=== PATIENT | female | born 1995 | race Caucasian/White ===

== ENCOUNTER 2024-09-08 15:38 | Emergency (ER) | payer OTHER, SELFPAY ==
[2024-09-08 15:48] VITALS: BP 111/60; PULSE 84; RESP 16; TEMP 36.8; O2SAT 100
--- NOTE | 2024-09-08 15:53 | ED.GENADULT ---
HPI - General Adult General Chief complaint: Skin/Abscess/Foreign Body Stated complaint: swollen lymph node Time Seen by Provider: 09/08/24 15:53 Source: patient Mode of arrival: ambulatory Limitations: no limitations History of Present Illness HPI narrative: 29y yo F presents with swollen painful lymph node to R side of neck. Noticed yesterday. States came on suddenly . Called PCP office and told her she should be seen today at an , no appts there. Afebrile. States acne worse that usual. Recently found out shes . Staes she's approx. 4wks. All systems reviewed and negative except as noted above. Related Data Allergies Allergy/AdvReac Type Severity Reaction Status Date / Time amoxicillin Allergy Severe Anaphylaxis Verified 09/08/24 15:53 Penicillins Allergy Severe Anaphylaxis Verified 09/08/24 15:53 Review of Systems Review of Systems: CONSTITUTIONAL: Denies fever, chills, or sweats. EYES: Denies visual changes, redness, or discharge. ENT: Denies rhinorrhea, congestion, sore throat, or otalgia. CARDIOVASCULAR: Denies chest pain, palpitations, or edema. RESPIRATORY: Denies cough or dyspnea. GASTROINTESTINAL: Denies abdominal pain, nausea, vomiting, or diarrhea. GENITOURINARY: Denies dysuria or hematuria. SKIN: Denies rash or itching. Reports lymph node to right side of neck as swollen and painful. MUSCULOSKELETAL: Denies back pain, joint pain, or myalgia. NEUROLOGIC: Denies headache, numbness, or weakness. PSYCHIATRIC: Denies anxiety or depression. All other systems reviewed are negative, except as documented in HPI. PMFSH Comments At time of signature, agree with nursing past medical, surgical, social and family history. There is no relevant family history pertinent to the presenting complaint. Exam Narrative: GENERAL: This is a well-nourished, well-developed patient, in no apparent distress. HEAD: normocephalic, atraumatic. EYES: PERRL. Sclera clear/white. Vision is grossly intact. EARS: External ears normal, NOSE: External nose normal NECK: Neck supple, tender Right-sided cervical lymphadenopathy. No masses or thyromegaly. CARDIOVASCULAR: Regular rate and rhythm without murmurs, gallops, or rubs. RESPIRATORY: Clear to auscultation. Breath sounds equal bilaterally. No wheezes, rales, or rhonchi. SKIN: warm, Dry, intact with no suspicious lesions or rash, good texture and turgor. Multiple scabs to face from acne. Scabbed to right cheek has surrounding erythema and swelling with mild warmth. NEURO: awake, alert, and oriented to person, place and time. There were no obvious focal neurologic abnormalities. EXTREMITIES: No joint tenderness, effusion, or edema noted. Course Course Level of Care: Express Care Visit Vital Signs Vital signs: reviewed Medical Decision Making MDM Narrative Medical decision making narrative: patient is well-appearing, nontoxic. Afebrile. Will treat with antibiotic for right-sided facial cellulitis. Recommend follow-up with primary care physician if lymph node swelling not improving. Please be advised this is a medical document. It is intended for [id number] communication. It is written in medical language and may contain unfamiliar abbreviations or verbiage. Medical documents are intended to carry relevant information, facts as evident, and the clinical opinion of the practitioner at the time of the encounter. This report may have been done utilizing a voice recognition system. Attempts have been made to correct errors. However, there may be uncorrected grammatical, spelling, and recognition errors present. The file time of this note does not necessarily represent the time of service. Discharge Plan Discharge Clinical Impression: Cellulitis of face, Lymphadenopathy Patient Disposition: Home, Self-Care Condition: Stable Instructions: Antibiotic Form, Cellulitis (ED) Additional Instructions: Take antibiotic as prescribed. Avoid picking at acne on face to prevent infection. Follow-up with primary care physician if lymph node swelling not improving. Patient Language: Monegasque Prescriptions: New clindamycin HCl 300 mg capsule 300 mg PO Q8H 7 Days Qty: 21 0RF Follow-up/Referrals: Catherine,Christina Lagunas MD [Primary Care Provider] - Time of Disposition: 16:04
--- OUTSIDE RECORDS SUMMARY | 2024-09-08 16:51 | XMS_ITS | Encounter Summary ---
Author Organization [facility] Address [facility] [place] [address] Care Team Providers Care Line Welder Name Role Phone Christina Alexander DO Primary Care Provider [phone] Encounter Details Date Type Department Care Team (Late st Contact Info) Description 09/08/2024 Boardvotet Message Enc [facility] Family Medicine - [place] [address], [address] [place] [id number] Christina Alexander DO [address] [place] [address] swollen lymph node in neck Social History Tobacco Use Types Packs/Day Years Used Date Smoking Tobacco: Every Day Cigarettes 0.5 6.2 Started: 06/16/2018 Passive Smoke Exposure: Current Smokeless Tobacco: Never Comments:Patient is ready to quit. Alcohol Use Standard Drinks/Week Comments No 0 (1 standard drink = 0.6 oz pur e alcohol) AUDIT-C Answer Date Recorded Frequency of Alcohol Consumption Never 05/12/2018 Average Number of Drinks Not on file 018 Frequency of Binge Drinking Not on file 04/17 PHQ-2 Answer Date Recorded Patient Health Questionnaire-2 Score 1 12/22/2023 Comments No Sex and Gender Information Value Date Recorded Sex Assigned at Not on file Legal Sex Female 6:20 PM CDT Gender Identity Not on file Sexual Orientation Not on file documented as of this encounter Plan of Treatment Upcoming Encounters Date Type Department Care Team (Late st Contact Info) Description 09/09/2024 2:20 PM CDT Office Visit [facility] Family Medicine - [place] [address], [address] [place] [address] Christina Alexander DO [address] [place] [address] documented as of this encounter Visit Diagnoses Not on filedocumented in this encounter Additional Health Concerns Assessment Noted Time PHQ-9 Depression Total Score: 13 024 9:46 AM CDT documented as of this encounter Care Teams Line Welder Relationship Specialty Start Date End Date Christina Alexander DO [address] [place] [address] PCP - General 09/13/15 documented as of this encounter
--- OUTSIDE RECORDS SUMMARY | 2024-09-08 16:51 | XMS_ITS | Referral Summary ---
Author Organization [facility] Address [address] [place] [address] Care Team Providers Care Police Chief Name Role Phone Christina Alexander MD Primary Care Provider [phone] Encounters Date Type Department Care Team Description 08/20/2024 8:08 PM MACHINE III COREMAKER - 08/20/2024 8:59 PM [facility] Emergency [facility] Emergency Department [address] [place] [address] Chest pain, unspecified type (Primary Dx) Discharge Disposition: Discharge to home or self care from Last 3 Months Allergies Active Allergy Reactions Criticality Noted Date Comments Amoxicillin Anaphylaxis High 01/14/2019 anaphylaxis Penicillin V Potassium Anaphylaxis High 01/14/2019 anaphylaxis Penicillins Anaphylaxis,Hives High 05/08/2018 Itching Hives Medications levothyroxine (SYNTHROID) 25 mcg tablet Take 1 tablet (25 mcg total) by mouth garment inspector before breakfast 2 Active busPIRone (BUSPAR) 5 mg tablet Take 1 tablet (5 mg total) by mouth 3 (three) times a day Active hydrOXYzine (ATARAX) 10 mg tablet Take 1 tablet (10 mg total) by mouth 3 (three) times a day as needed Active Active Problems Problem Noted Date Diagnosed Date Sore throat 08/14/2022 Assessment & Plan (08/15/2022 8:19 AM MACHINE III COREMAKER): Rapid strep negative Throat culture and PCR pending Provided prescription for azithromycin due to strep exposure and currently symptomatic, discussed she can wait until throat culture results to start antibiotic or start now Warm salt water gargles Tylenol (acetaminophen) or Advil/Motin (ibuprofen) as needed per package directions for aches/pains. If you are not improving or worsening in the next 3-5 days you must RETURN to the clinic, go to your PCP, or Urgent Care/ER to be SEEN and reevaluated. No further prescriptions or refills will be given by phone without another evaluation. Generalized anxiety disorder 09/25/2021 Assessment & Plan (09/25/2021 7:23 PM CDT): pcp managing. Encouraged continued f/u with their office. She additionally is evaluated by a counselor, encouraged her to continue with their care. Irregular menses 09/25/2021 Assessment & Plan (09/25/2021 7:23 PM CDT): Discussed pain was likely ovulatory/cyst related. Will evaluate further with US. Tni's thyroiditis 09/25/2021 Assessment & Plan (09/25/2021 7:22 PM CDT): pcp managing Surveillance of implantable subdermal contracept marilu 01/14/2019 Anxiety 01/15/2017 Depression 04/05/2016 Acne 08/16/2013 Dysmenorrhea 08/12/2012 Social History Tobacco Use Types Packs/Day Years Used Date Smoking Tobacco: Every Day Cigarettes Smokeless Tobacco: Never Alcohol Use Standard Drinks/Week Comments Yes 0 (1 standard drink = 0.6 oz pur e alcohol) Social Personal Safety Answer Date Recorded Have you ever been in or are you currently in a harmful physical or emotional relationship or is someone making you feel afraid or unsafe? Denies 08/20/2024 Comments No Sex and Gender Information Value Date Recorded Sex Assigned at Not on file Legal Sex Female 11:17 PM MACHINE III COREMAKER Gender Identity Not on file Sexual Orientation Not on file Last Filed Vital Signs Vital Sign Reading Time Taken Comments Blood Pressure 104/73 08/20/2024 8:30 PM MACHINE III COREMAKER Pulse 77 08/20/2024 8:50 PM MACHINE III COREMAKER Temperature 36.8 C (98.2 F) 08/20/2024 8:50 PM MACHINE III COREMAKER Respiratory Rate 16 08/20/2024 8:50 PM MACHINE III COREMAKER Oxygen Saturation 100% 08/20/2024 8:50 PM MACHINE III COREMAKER Inhaled Oxygen Concentration - - Weight 65.3 kg (143 lb 15.4 oz) 08/20/2024 6:29 PM MACHINE III COREMAKER Height 170.2 cm (5' 7 ) 08/20/2024 6:29 PM MACHINE III COREMAKER Body Mass Index 22.55 08/20/2024 6:29 PM MACHINE III COREMAKER Plan of Treatment Not on file Procedures Procedure Name Priority Date/Time Associated Diagnosis Comments EGFR STAT 08/20/2024 7:22 PM MACHINE III COREMAKER DIFFERENTIAL AUTO STAT 08/20/2024 7:2 2 PM MACHINE III COREMAKER TROPONIN T HIGH-SENSITIVITY SERIES (BASELINE, 2HR, 4HR, 6HR) STAT 08/20/2024 7:22 PM MACHINE III COREMAKER COMPREHENSIVE METABOLIC PANEL STAT 08/20/2024 7:22 PM MACHINE III COREMAKER CBC WITH AUTO DIFFERENTIAL STAT 08/20/2024 7:22 PM MACHINE III COREMAKER XR CHEST 1 VIEW ED 08/20/2024 6:57 PM MACHINE III COREMAKER ECG 12-LEAD STAT 08/20/2024 6:37 PM MACHINE III COREMAKER THINPREP TIS PAP REFLEX HPV MRNA E6/E7, CHLAMYDIA/N.GONORRHOEA E Routine 07/25/2017 3:17 PM MACHINE III COREMAKER HEPATITIS C ANTIBODY Routine 07/25/2017 2:35 PM MACHINE III COREMAKER from Last 3 Months or Most Recently Relevant to Health Maintenance Results * Troponin T high-sensitivity series (baseline, 2hr, 4hr, 6hr) (08/20/2024 7:22 PM MACHINE III COREMAKER) Trop T hs <6 <=14 ng/L Comment: Interpretive Data For further hscTnT resources including the diagnostic algorithm and an aid in interpretation, copy and paste this link: https://nrl.testcatalog.org/show/hsTrop Current Interpretive Data last revised 2020. Testing performed by: [address] [address] Blood 08/20/2024 7:22 PM MACHINE III COREMAKER 08/20/2024 7:35 PM MACHINE III COREMAKER Mario Alberto Emery MD LAB BLOOD ORDERABLES F inal Result Performing Organization Address [facility] Co de Phone Number RICHELLE [address] [place] [address] * eGFR (08/20/2024 7:22 PM MACHINE III COREMAKER) eGFR >90 >=60 mL/min/1. 73 m2 Comment: Interpretive Data Reference Interval Normal >/= 90 mL/min/1.73m2 Mildly decreased* 60 - 89 mL/min/1.73m2 Mildly to moderately decreased 45 - 59 mL/min/1.73m2 Moderately to severely decreased 30 - 44 mL/min/1.73m2 Severely decreased 15 - 29 mL/min/1.73m2 Kidney Failure < 15 mL/min/1.73m2 *Relative to young adult level Estimated glomerular filtration rate is determined by the 2020 CKD-EPI equation recommended by the National Kidney Foundation (A Unifying Approach to GFR Estimation: Recommendations of the NKF-ASK Task Force on Reassessing the Inclusion of Race in Diagnosing Kidney Disease, JASN 202). The CKD-EPI equation should not be used for patients with unstable renal function and has not been validated in children and those over 70. Current interpretive data was last reviewed 2021. Testing performed by: [address] [address] Blood 08/20/2024 7:22 PM MACHINE III COREMAKER 08/20/2024 7:35 PM MACHINE III COREMAKER us Mario Alberto Emery MD LAB BLOOD ORDERABLES F inal Result Performing Organization Address City/[facility]/ZIP Co de Phone Number RICHELLE [address] [place] [address] * Differential, auto (08/20/2024 7:22 PM MACHINE III COREMAKER) Neutrophil abs 4.7 1.5 - 6.5 K/cumm Comment:Testing performed by : [address] [address] Imm gran abs 0.0 0.0 - 0.1 K/cumm [facility] Comment:Testing performed by : [address] [address] Lymphocyte abs 2.4 0.8 - 3.3 K/cumm [facility] Comment:Testing performed by : [address] [address] Monocyte abs 0.5 0.2 - 0.8 K/cumm [facility] Comment:Testing performed by : [address] [address] Eosinophil abs 0.1 0.0 - 0.5 K/cumm [facility] Comment:Testing performed by : [address] [address] Basophil abs 0.1 0.0 - 0.1 K/cumm [facility] Comment:Testing performed by : [address] [address] Neutrophil pct 60.3 % [facility] Comment: Interpretive Data Percent cell count reference ranges are not reported, since discordance with absolute values may lead to misinterpretation of CBC data. Current Interpretive Data was last revised on 2017. Testing performed by: [address] [address] Imm gran pct 0.3 % [facility] Comment: Interpretive Data Percent cell count reference ranges are not reported, since discordance with absolute values may lead to misinterpretation of CBC data. Current Interpretive Data was last revised on 2017. Testing performed by: [address] [address] Lymphocyte pct 31.1 % [facility] Comment: Interpretive Data Percent cell count reference ranges are not reported, since discordance with absolute values may lead to misinterpretation of CBC data. Current Interpretive Data was last revised on 2017. Testing performed by: [address] [address] Monocyte pct 6.7 % RICHELLE Comment: Interpretive Data Percent cell count reference ranges are not reported, since discordance with absolute values may lead to misinterpretation of CBC data. Current Interpretive Data was last revised on 2017. Testing performed by: [address] [address] Eosinophil pct 1.0 % RICHELLE Comment: Interpretive Data Percent cell count reference ranges are not reported, since discordance with absolute values may lead to misinterpretation of CBC data. Current Interpretive Data was last revised on 2017. Testing performed by: [address] [address] Basophil pct 0.6 % RICHELLE Comment: Interpretive Data Percent cell count reference ranges are not reported, since discordance with absolute values may lead to misinterpretation of CBC data. Current Interpretive Data was last revised on 2017. Testing performed by: [address] [address] Blood 08/20/2024 7:22 PM MACHINE III COREMAKER 08/20/2024 7:35 PM MACHINE III COREMAKER us Mario Alberto Emery MD LAB BLOOD ORDERABLES F inal Result [facility] [place] [address] * CBC with auto differential (08/20/2024 7:22 PM MACHINE III COREMAKER) Pathologist [facility] WBC 7.7 3.8 - 9.9 K/cumm Comment:Testing performed by : [address] [address] Hgb 12.7 11.9 - 15.5 g/dL RICHELLE PANDA Comment:Testing performed by : [address] [address] Hct 37.6 35.6 - 45.5 % RICHELLE PANDA Comment:Testing performed by : [address] [address] Plt 276 150 - 400 K/cumm RICHELLE PANDA Comment:Testing performed by : [address] [address] MPV 10.1 9.1 - 12.3 fL RICHELLE PANDA Comment:Testing performed by : [address] [address] RBC 4.16 3.90 - 5.20 M/cumm RICHELLE PANDA Comment:Testing performed by : [address] [address] MCV 90.4 81.3 - 96.4 fL RICHELLE PANDA Comment:Testing performed by : [address] [address] MCH 30.5 27.1 - 33.3 pg RICHELLE PANDA Comment:Testing performed by : [address] [address] MCHC 33.8 32.3 - 35.7 g/dL RICHELLE PANDA Comment:Testing performed by : [address] [address] RDW CV 12.8 11.1 - 14.9 % RICHELLE Comment:Testing performed by : [address] [address] RDW SD 41.8 35.7 - 48.1 fL RICHELLE PANDA Comment:Testing performed by : [address] [address] NRBC abs 0.00 0.00 - 0.01 K/cumm RICHELLE Comment:Testing performed by : [address] [address] Blood Venous blood specimen / Unknown 08/20/2024 7:22 PM MACHINE III COREMAKER 08/20/2024 7:35 PM MACHINE III COREMAKER us Mario Alberto Emery MD LAB BLOOD ORDERABLES F inal Result RICHELLE PANDA [facility] Department [place] [address] * Comprehensive metabolic panel (08/20/2024 7:22 PM MACHINE III COREMAKER) Sodium 139 135 - 145 mmol/L Comment:Testing performed by : [address], [place]., [address] Potassium, pl 4.1 3.3 - 4.9 mmol/L RICHELLE Comment:Testing performed by : [address], [place]., [address] Chloride 105 97 - 110 mmol/L RICHELLE Comment:Testing performed by : [address], [place]., [address] CO2 25 22 - 32 mmol/L RICHELLE Comment:Testing performed by : [address], [place]., [address] Anion gap 9 2 - 15 mmol/L RICHELLE Comment:Testing performed by : [address], [place]., [address] BUN 14 6 - 25 mg/dL RICHELLE Comment:Testing performed by : [address], [place]., [address] Creatinine 0.63 0.60 - 1.10 mg/dL RICHELLE Comment:Testing performed by : [address], [place]., [address] Glucose 91 70 - 199 mg/dL [facility] Comment: Interpretive Data Fasting glucose >/= 126 mg/dl is diagnostic for diabetes. Fasting is defined as no caloric intake for at least 8 hours. Fasting glucose between 100 mg/dl to 125 mg/dl is diagnostic of prediabetes. In a patient with classic symptoms of hyperglycemia or hyperglycemic crisis, a random glucose >/= 200 mg/dl is diagnostic for diabetes. In the absence of unequivocal hyperglycemia, results should be confirmed by repeat testing. The classification and Diagnosis of Diabetes Diabetes Care 202; 46: S19-S40. Current interpretive data was last revised 2022. Testing performed by: [address] [address] Calcium 9.4 8.5 - 10.3 mg/dL RICHELLE Comment:Testing performed by : [address], [place]., [address] Bilirubin, total 0.7 0.1 - 1.2 mg/dL RICHELLE Comment:Testing performed by : [address] [address] Protein, pl 7.3 6.5 - 8.5 g/dL RICHELLE PANDA Comment:Testing performed by : [address] [address] Albumin 4.5 3.5 - 5.0 g/dL RICHELLE PANDA Comment:Testing performed by : [address] [address] Alk phos 46 40 - 130 Units/L RICHELLE Comment:Testing performed by : [address] [address] ALT 12 7 - 45 Units/L RICHELLE Comment:Testing performed by : [address] [address] AST 19 10 - 45 Units/L RICHELLE Comment:Testing performed by : [address] [address] Blood 08/20/2024 7:22 PM MACHINE III COREMAKER 08/20/2024 7:35 PM MACHINE III COREMAKER us Mario Alberto Emery MD LAB BLOOD ORDERABLES F inal Result RICHELLE [address] [facility] Department [place] [address] * XR Chest 1 Vw Portable (if patient condition/safety warrant portable) (08/20/2024 6:57 PM MACHINE III COREMAKER) Anatomical Region Laterality Modality Body, Chest N/A Computed Radiogr aphy 08/20/2024 7:08 PM MACHINE III COREMAKER Narrative 08/20/2024 7:13 PM MACHINE III COREMAKER EXAM DESCRIPTION: XR CHEST 1 VIEW REASON FOR STUDY: chest pain Panic attack last night that continued into today and has gotten worse. Chest pains with it. TECHNIQUE: Single frontal radiographic view(s) of the chest. COMPARISON: None available. FINDINGS: No focal pneumonic consolidation, pleural effusion or pneumothorax. The heart is nonenlarged. The osseous structures without gross acute abnormality. IMPRESSION: No focal pneumonic consolidation. THIS IS AN ELECTRONICALLY VERIFIED FINAL REPORT 08/20/2024 7:13 PM - Electronically signed by Paul Peacock D.O. AP: AP Report ID: [id number] Reading Location: [id number] Procedure Note Paul Peacock DO - 08/20/2024 EXAM DESCRIPTION: XR CHEST 1 VIEW REASON FOR STUDY: chest pain Panic attack last night that continued into today and has gotten worse.Chest pains with it. TECHNIQUE: Single frontal radiographic view(s) of the chest. COMPARISON: None available. FINDINGS: No focal pneumonic consolidation, pleural effusion orpneumothorax. The heart is nonenlarged. The osseous structures without gross acute abnormality. IMPRESSION: No focal pneumonic consolidation. THIS IS AN ELECTRONICALLY VERIFIED FINAL REPORT 08/20/2024 7:13 PM - Electronically signed by Paul Peacock D.O. AP: AP Report ID: [id number] Reading Location: [id number] us Mario Alberto Emery MD IMG XR PROCEDURES Penny l Result * ECG 12 lead (08/20/2024 6:37 PM MACHINE III COREMAKER) Ventricular Rate EKG/Min 71 BPM [facility] Atrial Rate 71 BPM [facility] [place]-Interval (MSEC) 172 ms [facility] QRS-Interval (MSEC) 86 ms [facility] QT-Interval (MSEC) 408 ms [facility] QTc 443 ms [facility] P Adel 46 degrees [facility] R Adel 39 degrees [facility] T Adel 33 degrees [facility] Diagnosis Normal sinus rhythm Normal ECG When compared with ECG of 25-JUL-2005 21:46, No significant change was found Confirmed by RICKY DANIELS M.D. ([id number]) on 08/21/2024 7:56:47 AM [facility] 08/20/2024 6:37 PM MACHINE III COREMAKER 08/21/2024 7:56 AM MACHINE III COREMAKER us Margarita SWEET ECG ORDERABLES Final Result [facility] * THINPREP TIS PAP REFLEX HPV mRNA E6/E7, CHLAMYDIA/N.GONORRHOEAE (07/25/2017 3:17 PM MACHINE III COREMAKER) CLINICAL INFORMATION [facility] HISTORICAL RESULTS Comment: LMP: 04/29/17 [facility] HISTORICAL RESULTS PREV. PAP: [facility] HISTORICAL RESULTS Comment:NEVER PREV. BX: [facility] HISTORICAL RESULTS Comment:Information not prov ided SOURCE: [facility] HISTORICAL RESULTS Comment:Cervix, Endocervix STATEMENT OF ADEQUACY: [facility] EC HISTORICAL RESULTS Comment:Satisfactory for frank luation. Endocervical/transformation zone component present. INTERPRETATION/RES ULT: [facility] HISTORICAL RESULTS Comment:Negative for intraep ithelial lesion or malignancy. INFECTION: [facility] HISTORICAL RESULTS Comment:Fungal organisms mor phologically consistent with Sailaja spp. COMMENT: [facility] HISTORICAL RESULTS Comment:This Pap test has be en evaluated with computer assisted technology. CORPORATE TRAINER: [facility] HISTORICAL RESULTS Comment:BAB, CT(ASCP) CT scr eening location: [place] [address] [place] [address] C. trachomatis RNA NOT DETECTED NOT DETECTED [facility] HISTORICAL RESULTS N. gonorrhoeae RNA NOT DETECTED NOT DETECTED [facility] HISTORICAL RESULTS COMMENT [facility] HISTORICAL RESULTS Comment: This test was performed using the APTIMA COMBO2 Assay (Gen-Walk-in [employer] The analytical performance characteristics of this assay, when used to test SurePath specimens have been determined by [facility]. 07/25/2017 3:17 PM MACHINE III COREMAKER 07/31/2017 3:05 PM MACHINE III COREMAKER Narrative [facility] HISTORICAL RESULTS - 07/31/2017 2:39 PM MACHINE III COREMAKER 0 PERFORMING LAB: [facility] [address] [facility] [id number] Franny Montero MD Dinah Cowan MD LAB PATHOLOGY ORDERABL ES Final Result Performing Organization Address City/[facility]/ZIP Co de Phone Number [facility] HISTORICAL RESULTS * Hepatitis C antibody (07/25/2017 2:35 PM MACHINE III COREMAKER) Hep C Ab NONREACT NONREACTIVE 07/25/2017 8:02 PM MACHINE [address] [facility] HISTORICAL RESULTS Comment: [employer] CentaurXP using MARY LOU (chemiluminescent immunoassay) technology. NONREACTIVE: Antibodies to Hepatitis C not detected. This does not exclude early acute Hepatitis C infection, possibility of exposure to Hepatitis C, antibodies below detection limit, or to lack of antibody reactivity to the antigen used in this assay. EQUIVOCAL: Antibodies to Hepatitis C may or may not be present. Sample to be confirmed by real-time PCR method. REACTIVE: Antibodies to Hepatitis C detected. 07/25/2017 2:35 PM MACHINE III COREMAKER 07/25/2017 3:51 PM MACHINE III COREMAKER Dinah Cowan MD LAB MICROBIOLOGY - GEN ERAL ORDERABLES Final Result [facility] HISTORICAL RESULTS from Last 3 Months or Most Recently Relevant to Health Maintenance Insurance [employer] OPEN ACCESS [employer] OPEN ACCESS Care Teams Police Chief Relationship Specialty Start Date End Date Christina Alexander MD PCP - General Family Medicine 01/14/19
--- OUTSIDE RECORDS SUMMARY | 2024-09-08 16:51 | XMS_ITS | Clinical Summary ---
Author Organization [facility] [address] at the Medical Office Building Address [address] [place] [address] Care Team Providers Care Direct Marketing Intern Name Role Phone Christina Alexander MD Primary Care Provider [phone] Allergies Active Allergy Reactions Criticality Noted Date Comments Amoxicillin Anaphylaxis High 01/14/2019 anaphylaxis Penicillin V Potassium Anaphylaxis High 01/14/2019 anaphylaxis Penicillins Anaphylaxis,Hives High 05/08/2018 Itching Hives Medications levothyroxine (SYNTHROID) 25 mcg tablet Take 1 tablet (25 mcg total) by mouth 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 Will evaluate further with US. 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 Assessment & Plan (09/25/2021 7:22 PM CDT): pcp managing Surveillance of implantable subdermal contracept marilu 01/14/2019 Anxiety 01/15/2017 Depression 04/05/2016 Acne 08/16/2013 Dysmenorrhea 08/12/2012 Encounters Date Type Department Care Team Description 08/20/2024 8:08 PM FOAM RUBBER CURER - 08/20/2024 8:59 PM RUST Emergency [facility] Emergency Department [address] [place] [address] [id number] Chest pain, unspecified type (Primary Dx) Discharge Disposition: Discharge to home or self care from Last 3 Months Surgical History Surgery Date Site/Laterality Comments HERNIA REPAIR Medical History Medical History Date Comments Anxiety Family History Medical History Relation Name Comments Breast cancer Neg Hx Colon cancer Neg Hx Osteoarthritis Neg Hx Ovarian cancer Neg Hx Uterine cancer Neg Hx Social History Tobacco Use Types Packs/Day Years [...] on file Legal Sex Female 11:17 PM FOAM RUBBER CURER Gender Identity Not on file Sexual Orientation Not on file Obstetrics History Para Term AB IAB SAB Ectopic Multiple Livin g Live Births 1 1 1 1 1 Date Outcome GA Total Labor Labor/2nd/3rd Weight Sex Type Anes PTL Cecille A1 A5 Name Clin 2017 Term 38w 0d M Vag-S pont N Living Last Filed Vital Signs Vital Sign Reading Time Taken Comments Blood Pressure 104/73 08/20/2024 8:30 PM FOAM RUBBER CURER Pulse 77 08/20/2024 8:50 PM FOAM RUBBER CURER Temperature 36.8 C (98.2 F) 08/20/2024 8:50 PM FOAM RUBBER CURER Respiratory Rate 16 08/20/2024 8:50 PM FOAM RUBBER CURER Oxygen Saturation 100% 08/20/2024 8:50 PM FOAM RUBBER CURER Inhaled Oxygen Concentration - - Weight 65.3 kg (143 lb 15.4 oz) 08/20/2024 6:29 PM FOAM RUBBER CURER Height 170.2 cm (5' 7 ) 08/20/2024 6:29 PM FOAM RUBBER CURER Body Mass Index 22.55 08/20/2024 6:29 PM FOAM RUBBER CURER Plan of Treatment Health Maintenance Due Date Last Done Comments Depression Screening 1995 Regular Well Visit/Exam 18-64 2013 Pneumococcal vaccine <65 (1 of 2 - PCV) 2014 Cervical Cancer Screening 07/25/2018 07/25/2017 Influenza Vaccine (#1) 2024 8, 03/14/2014, 03/25/2013, Additional history exists DTaP/Tdap/Td Vaccine (8 - Td or Tdap) 10/07/2028 10/07/2018, 08/01/2009, 02/05/2001, Additional history exists Varicella Vaccines Completed 02/05/2001, 07/23/1999 HPV Vaccines Completed 04/09/2007, 05/0 09/2006, 08/05/2006 Hepatitis B Screening Completed 04/01/2013 , 02/10/1996, 1995, Additional history exists Hepatitis C Screening Completed 07/25/2017 Procedures Procedure Name Priority Date/Time Associated Diagnosis Comments EGFR STAT 08/20/2024 7:22 PM FOAM RUBBER CURER DIFFERENTIAL AUTO STAT 08/20/2024 7:2 2 PM FOAM RUBBER CURER TROPONIN T HIGH-SENSITIVITY SERIES (BASELINE, 2HR, 4HR, 6HR) STAT 08/20/2024 7:22 PM FOAM RUBBER CURER COMPREHENSIVE METABOLIC PANEL STAT 08/20/2024 7:22 PM FOAM RUBBER CURER CBC WITH AUTO DIFFERENTIAL STAT 08/20/2024 7:22 PM FOAM RUBBER CURER XR CHEST 1 VIEW ED 08/20/2024 6:57 PM FOAM RUBBER CURER ECG 12-LEAD STAT 08/20/2024 6:37 PM FOAM RUBBER CURER THINPREP TIS PAP REFLEX HPV MRNA E6/E7, CHLAMYDIA/N.GONORRHOEA E Routine 07/25/2017 3:17 PM FOAM RUBBER CURER HEPATITIS C ANTIBODY Routine 07/25/2017 2:35 PM FOAM RUBBER CURER from Last 3 Months or Most Recently Relevant to Health Maintenance Results * Troponin T high-sensitivity series (baseline, 2hr, 4hr, 6hr) (08/20/2024 7:22 PM FOAM RUBBER CURER) Pathologist [facility] Trop T hs <6 <=14 ng/L Comment: Interpretive Data For further hscTnT resources including the diagnostic algorithm and an aid in interpretation, copy and paste this link: https://nrl.testcatalog.org/show/hsTrop Current Interpretive Data last revised 2020. Testing performed by: [facility], [address] [place] [address]., [address] Blood 08/20/2024 7:22 PM FOAM RUBBER CURER 08/20/2024 7:35 PM FOAM RUBBER CURER us Mario Alberto Emery MD LAB BLOOD ORDERABLES F inal Result RICHELLE [address] [facility] Department [place] [address] * eGFR (08/20/2024 7:22 PM FOAM RUBBER CURER) Pathologist [facility] eGFR >90 >=60 mL/min/1. 73 m2 Comment: [...] of Race in Diagnosing Kidney Disease, JASN 2020). The CKD-EPI equation should not be used for patients with unstable renal function and has not been validated in children and those over 70. Current interpretive data was last reviewed 2021. Testing performed by: [address] [address] Blood 08/20/2024 7:22 PM FOAM RUBBER CURER 08/20/2024 7:35 PM FOAM RUBBER CURER us Mario Alberto Emery MD LAB BLOOD ORDERABLES F inal Result R[facility]HELLE [address] [facility] Department [place] [address] * Differential, auto (08/20/2024 7:22 PM FOAM RUBBER CURER) Neutrophil abs 4.7 1.5 - 6.5 K/cumm Comment:Testing performed by : [address] [address] Imm gran abs 0.0 0.0 - 0.1 K/cumm RICHELLE Comment:Testing performed by : [address] [address] Lymphocyte abs 2.4 0.8 - 3.3 K/cumm RICHELLE Comment:Testing performed by : [address] [address] Monocyte abs 0.5 0.2 - 0.8 K/cumm RICHELLE Comment:Testing performed by : [address] [place]., [address] Eosinophil abs 0.1 0.0 - 0.5 K/cumm [facility] Comment:Testing performed by : [address] [address] Basophil abs 0.1 0.0 - 0.1 K/cumm RICHELLE Comment:Testing performed by : [address] [address] Neutrophil pct 60.3 % [facility] Comment: Interpretive Data Percent cell count reference ranges are not reported, since discordance with absolute values may lead to misinterpretation of CBC data. Current Interpretive Data was last revised on 2017. Testing performed by: [address] [address] Imm gran pct 0.3 % [facility] Comment: Interpretive Data Percent cell count reference ranges are not reported, since discordance with absolute values may lead to misinterpretation of CBC data. Current Interpretive Data was last revised on 2017. Testing performed by: [address] [address] Lymphocyte pct 31.1 % [facility] Comment: Interpretive Data Percent cell count reference ranges are not reported, since discordance with absolute values may lead to misinterpretation of CBC data. Current Interpretive Data was last revised on 2017. Testing performed by: [address] [address] Monocyte pct 6.7 % [facility] Comment: Interpretive Data Percent cell count reference ranges are not reported, since discordance with absolute values may lead to misinterpretation of CBC data. Current Interpretive Data was last revised on 2017. Testing performed by: [address] [address] Eosinophil pct 1.0 % [facility] Comment: Interpretive Data Percent cell count reference ranges are not reported, since discordance with absolute values may lead to misinterpretation of CBC data. Current Interpretive Data was last revised on 2017. Testing performed by: [address] [address] Basophil pct 0.6 % [facility] Comment: Interpretive Data Percent cell count reference ranges are not reported, since discordance with absolute values may lead to misinterpretation of CBC data. Current Interpretive Data was last revised on 2017. Testing performed by: [address] [address] Blood 08/20/2024 7:22 PM FOAM RUBBER CURER 08/20/2024 7:35 PM FOAM RUBBER CURER us Mario Alberto Emery MD LAB BLOOD ORDERABLES F inal Result [facility] [address] [facility] Department [place] [address] * CBC with auto differential (08/20/2024 7:22 PM FOAM RUBBER CURER) WBC 7.7 3.8 - 9.9 K/cumm Comment:Testing performed by : [address] [address] Hgb 12.7 11.9 - 15.5 g/dL RICHELLE Comment:Testing performed by : [address] [address] Hct 37.6 35.6 - 45.5 % R[facility]HELLE Comment:Testing performed by : [address] [address] Plt 276 150 - 400 K/cumm RICHELLE Comment:Testing performed by : [address] [address] MPV 10.1 9.1 - 12.3 fL RICHELLE Comment:Testing performed by : [address] [address] RBC 4.16 3.90 - 5.20 M/cumm RICHELLE Comment:Testing performed by : [address] [address] MCV 90.4 81.3 - 96.4 fL RICHELLE Comment:Testing performed by : [address] [address] MCH 30.5 27.1 - 33.3 pg RICHELLE Comment:Testing performed by : [address], [address] MCHC 33.8 32.3 - 35.7 g/dL RICHELLE PANDA Comment:Testing performed by : [address] [address] RDW CV 12.8 11.1 - 14.9 % RICHELLE PANDA Comment:Testing performed by : [address], [place]., [address] RDW SD 41.8 35.7 - 48.1 fL RICHELLE PANDA Comment:Testing performed by : [address] [address] NRBC abs 0.00 0.00 - 0.01 K/cumm RICHELLE PANDA Comment:Testing performed by : [address] [address] Blood Venous blood specimen / Unknown 08/20/2024 7:22 PM FOAM RUBBER CURER 08/20/2024 7:35 PM FOAM RUBBER CURER us Mario Alberto Emery MD LAB BLOOD ORDERABLES F inal Result R[facility] [address] [facility] Department of Laboratories [place], [place] [address] * Comprehensive metabolic panel (08/20/2024 7:22 PM FOAM RUBBER CURER) Sodium 139 135 - 145 mmol/L Comment:Testing performed by : [address] [address] Potassium, pl 4.1 3.3 - 4.9 mmol/L RICHELLE PANDA Comment:Testing performed by : [address] [address] Chloride 105 97 - 110 mmol/L RICHELLE Comment:Testing performed by : [address] [address] CO2 25 22 - 32 mmol/L RICHELLE PANDA Comment:Testing performed by : [address] [address] Anion gap 9 2 - 15 mmol/L RICHELLE APNDA Comment:Testing performed by : [address] [address] BUN 14 6 - 25 mg/dL RICHELLE Comment:Testing performed by : [address] [address] Creatinine 0.63 0.60 - 1.10 mg/dL RICHELLE Comment:Testing performed by : [address] [address] Glucose 91 70 - 199 mg/dL RICHELLE Comment: Interpretive Data Fasting glucose >/= 126 [...] classification and Diagnosis of Diabetes Diabetes Care 2021; 46: S19-S40. Current interpretive data was last revised 2022. Testing performed by: [address] [address] Calcium 9.4 8.5 - 10.3 mg/dL [facility] Comment:Testing performed by : [address] [address] Bilirubin, total 0.7 0.1 - 1.2 mg/dL [facility] Comment:Testing performed by : [address] [address] Protein, pl 7.3 6.5 - 8.5 g/dL RICHELLE Comment:Testing performed by : [address] [address] Albumin 4.5 3.5 - 5.0 g/dL [facility] Comment:Testing performed by : [address] [address] Alk phos 46 40 - 130 Units/L RICHELLE Comment:Testing performed by : [address] [address] ALT 12 7 - 45 Units/L RICHELLE Comment:Testing performed by : [address] [address] AST 19 10 - 45 Units/L RICHELLE Comment:Testing performed by : [address], [place]., [address] Blood 08/20/2024 7:22 PM FOAM RUBBER CURER 08/20/2024 7:35 PM FOAM RUBBER CURER us Mario Alberto Emery MD LAB BLOOD ORDERABLES F inal Result R[facility]HELLE [address] [facility] Department [place] [address] * XR Chest 1 Vw Portable (if patient condition/safety warrant portable) (08/20/2024 6:57 PM FOAM RUBBER CURER) Anatomical Region Laterality Modality Body, Chest N/A Computed Radiogr aphy 08/20/2024 7:08 PM FOAM RUBBER CURER Narrative 08/20/2024 7:13 PM FOAM RUBBER CURER EXAM DESCRIPTION: XR CHEST 1 VIEW REASON [...] Paul Peacock D.O. AP: AP Report ID: [id number] Reading Location: [id number] Procedure Note Paul Peacock, DO - 08/20/2024 EXAM DESCRIPTION: XR CHEST [...] Paul Peacock D.O. AP: AP Report ID: [id number] Reading Location: [place] [address] Mario Alberto Emery MD IMG XR PROCEDURES Penny l Result * ECG 12 lead (08/20/2024 6:37 PM FOAM RUBBER CURER) Ventricular Rate EKG/Min 71 BPM [facility] Atrial Rate 71 BPM [facility] MA-Interval (MSEC) 172 ms [facility] QRS-Interval (MSEC) 86 ms [facility] QT-Interval (MSEC) 408 ms [facility] QTc 443 ms [facility] P Tok 46 degrees [facility] R Tok 39 degrees [facility] T Tok 33 degrees [facility] Diagnosis Normal sinus rhythm Normal ECG When compared with ECG of 25-JUL-2005 21:46, No significant change was found Confirmed by RICKY DANIELS M.D. ([id number]) on 08/21/2024 7:56:47 AM [facility] 08/20/2024 6:37 PM FOAM RUBBER CURER 08/21/2024 7:56 AM FOAM RUBBER CURER Margarita SWEET ECG ORDERABLES Final Result [facility] * THINPREP TIS PAP REFLEX HPV mRNA E6/E7, CHLAMYDIA/N.GONORRHOEAE (07/25/2017 3:17 PM FOAM RUBBER CURER) CLINICAL INFORMATION [facility] HISTORICAL RESULTS Comment: LMP: 04/29/17 [facility] PREV. PAP: [facility] Comment:NEVER PREV. BX: [facility] RESULTS Comment:Information not prov ided SOURCE: [facility] HISTORICAL RESULTS Comment:Cervix, Endocervix STATEMENT OF ADEQUACY: [facility] HISTORICAL RESULTS Comment:Satisfactory for frank luation. Endocervical/transformation zone component present. INTERPRETATION/RES ULT: [facility]ISTORICAL RESULTS Comment:Negative for intraep ithelial lesion or malignancy. INFECTION: [facility] HISTORICAL RESULTS Comment:Fungal organisms mor phologically consistent with Sailaja spp. COMMENT: [facility] HISTORICAL RESULTS Comment:This Pap test has be en evaluated with computer assisted technology. PAINT POURER: [facility] HISTORICAL RESULTS Comment:BAB, CT(ASCP) CT scr eening location: [place] [address] [place] [address] C. trachomatis RNA NOT DETECTED NOT DETECTED [facility] HISTORICAL RESULTS N. gonorrhoeae RNA NOT DETECTED NOT DETECTED [facility] HISTORICAL RESULTS COMMENT [facility] HISTORICAL RESULTS Comment: This test was performed using the APTIMA COMBO2 Assay ([employer] The analytical performance characteristics of this assay, when used to test SurePath specimens have been determined by [facility] [facility]. 07/25/2017 3:17 PM FOAM RUBBER CURER 07/31/2017 3:05 PM FOAM RUBBER CURER Narrative [facility] HISTORICAL RESULTS - 07/31/2017 2:39 PM FOAM RUBBER CURER 0 PERFORMING LAB: [facility] [employer] [place] [address] [facility] [id number] Franny Montero MD Dinah Cowan MD LAB PATHOLOGY ORDERABL ES Final Result [facility] HISTORICAL RESULTS * Hepatitis C antibody (07/25/2017 2:35 PM FOAM RUBBER CURER) Hep C Ab NONREACT NONREACTIVE 07/25/2017 8:02 PM FOAM RUBBER CURER [facility] HISTORICAL RESULTS Comment: Siemens CentaurXP using MARY [...] to Hepatitis C detected. 07/25/2017 2:35 PM FOAM RUBBER CURER 07/25/2017 3:51 PM FOAM RUBBER CURER us Dinah Cowan MD LAB MICROBIOLOGY - GEN ERAL ORDERABLES Final Result [facility] HISTORICAL RESULTS from Last 3 Months or Most Recently Relevant to Health Maintenance Insurance [email or web address] OPEN ACCESS [email or web address] OPEN ACCESS Care Teams Direct Marketing Intern Relationship Specialty Start Date End Date Christina Alexander MD PCP - General Family Medicine 01/14/19
--- OUTSIDE RECORDS SUMMARY | 2024-09-08 16:51 | XMS_ITS | Encounter Summary ---
Author Organization [facility] Address [facility] [place] [address] Care Team Providers Care Glass Washer Name Role Phone Christina Alexander DO Primary Care Provider [phone] Encounter Details Date Type Department Care Team (Late st Contact Info) Description 10/11/2021 Newsrepst Message Enc [facility] Family Medicine - [place] [address] [facility], [address] [place] [phone] Christina Alexander DO [address] [place], [place] [address] thyroid/lymph nodes Social History Tobacco Use Types Packs/Day Years Used Date Smoking Tobacco: Former Smokeless Tobacco: Never Alcohol Use Standard Drinks/Week Comments No 0 (1 standard drink = 0.6 oz pur e alcohol) AUDIT-C Answer Date Recorded Frequency of Alcohol Consumption Never 05/12/2018 Average Number of Drinks Not on file 018 Frequency of Binge Drinking Not on file 04/17 PHQ-2 Answer Date Recorded PHQ-2 Score - If the patient scores above 3, please move on to questions 3-9 0 07/26/2021 Comments No Sex and Gender Information Value Date Recorded Sex Assigned at Not on file Legal Sex Female 6:20 PM CDT Gender Identity Not on file Sexual Orientation Not on file COVID-19 Exposure Response Date Recorded In the last 10 days, have yo u been in contact with someone who was confirmed or suspected to have Coronavirus/COVID-19? No / Unsure 10/02/2021 3:31 PM CDT documented as of this encounter Progress Notes * Christa Madrid RN - 10/12/2021 7:38 AM CDT DocSend message sent to patient with recommendations. Requested a response to see if she would liketo proceed with CT Soft Tissue of the Neck with Contrast * Christina Alexander DO - 10/11/2021 5:02 PM CDT We are really worried about lymph nodes and the persistent size she actually did better off to havea CT of the soft tissue of the neck with contrast. Assuming she is not currently . 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
--- OUTSIDE RECORDS SUMMARY | 2024-09-08 16:51 | XMS_ITS | Clinical Summary ---
Author Organization [facility] Address [address] [place] [address] Care Team Providers Care Powerhouse Electrician Apprentice Name Role Phone Christina Alexander DO Primary Care Provider [phone] Allergies Active Allergy Reactions Criticality Noted Date Comments Amoxicillin Anaphylaxis,Hives High 09/07/2020 Penicillins Hives 05/08/2018 Medications busPIRone (BUSPAR) 5 MG tabletIndications: Anxiety Take 1 tablet (5 mg total) by mouth 2 (two) times daily. 180 tablet 1 4 Active linaCLOtide (LINZESS) 72 MCG capsuleIndications :Irritable bowel syndrome with constipation Take 1 capsule (72 mcg total) by mouth every morning before breakfast. 30 capsule 11 4 Active levothyroxine (SYNTHROID) 25 MCG tabletIndications: Acquired hypothyroidism Take 1 tablet (25 mcg total) by mouth every morning. 90 tablet 3 4 Active adapalene (DIFFERIN) 0.1 % creamIndications:A cne vulgaris Apply topically nightly at bedtime. 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 Encouraged continued f/u with their office. She additionally is evaluated by a counselor, encouraged her to continue with their care. Cough 09/08/2017 Anxiety 01/15/2017 Depression 04/05/2016 Acne 08/16/2013 Dysmenorrhea 08/12/2012 Resolved Problems Problem Noted Date Diagnosed Date Resolved Date ([facility]) 06/26/2017 05/12/20 18 Encounters Date Type Department Care Team Description 09/08/2024 MyChart Message Enc [facility] [place] [id number] [facility], [address] [place] [address] Christina Alexander, DO swollen lymph node in neck 08/20/2024 Scan [facility] INFO SR[facility] Scanned, Doc [facility] from Last 3 Months Immunizations Name Administration Dates Next Due Dtap (Generic) 02/05/2001, 7,02/10/1996,12/07,1995 Fluzone 6 Months+ Quad (0.5 mL Prefilled Syringe) 05/08/2018 HPV GARDASIL 9-VALENT 04/09/2007,10/17/2006,07/18 Hepatitis A (Generic) 08/10/2010,08/01/2009 Hepatitis B (Generic Peds) 04/01/2013,,1995,08/12 Influenza (Generic) 03/25/2013,03/12/2012 Influenza Adult (Generic) 05/08/2018,03/14/2014 Influenza Peds (Generic) 02/23/2009,03/17,04/09/2007,05/17 MMR (Generic) 02/05/2001,07/23/1999 Meningococcal (Menactra) 04/09/2007 PFIZER COVID-19 (MARTINEZ CAP), MRNA, LNP-S, PF, 30 MCG/0.3 ML ZARIA-SUCROSE, IM 07/26/2021,06/28/2021 Polio Ipv (Generic) 02/05/2001, 7,1995,10/07 Tdap (Boostrix) 10/07/2018,08/01/2009 Family History Medical History Relation Comments Hypertension Maternal Grandfather None Mother Diabetes Other Epilepsy Other Mood Disorder Other Relation Status Comments Maternal Grandfather Mother Other Alive Social History Tobacco Use Types Packs/Day Years Used Date Smoking Tobacco: Every Day Cigarettes 0.5 6.2 Started: 06/16/2018 Passive Smoke Exposure: Current Smokeless Tobacco: Never Tobacco Cessation:Ready to Q uit: Yes; Counseling Given: Yes Comments:Patient is ready to quit. Alcohol Use [...] Sign Reading Time Taken Comments Blood Pressure 102/60 12/22/2023 9:12 AM CDT Pulse 76 12/22/2023 9:12 AM CDT Temperature 37.1 C (98.7 F) 12/22/2023 9:12 AM CDT Respiratory Rate 18 12/22/2023 9:12 AM CDT Oxygen Saturation 99% 12/22/2023 9:12 AM CDT Inhaled Oxygen Concentration - - Weight 65.1 kg (143 lb 9.6 oz) 12/22/2023 9:12 A M CDT Height 170.2 cm (5' 7 ) 10/28/2019 1:01 PM CDT Body Mass Index 22.49 10/28/2019 1:01 PM CDT Plan of Treatment Upcoming Encounters Date Type Department Care Team (Late st Contact Info) Description 09/09/2024 2:20 PM CDT Office Visit [facility] Family Medicine - [place] [address] [facility], [address] [place] [address] Christina Alexander DO [address] [place] [address] Health Maintenance Due Date Last Done Comments Cervical Cancer Screening Pap Smear (Age 21 to 29) Every 3 Years 1995 Cervical Cancer Screening 1995 Pneumococcal Vaccine: Pediatrics (0 to 5 Years) and At-Risk Patients (6 to 64 Years) (1 of 2 - PCV) 2001 Annual Physical 10/08/2019 10/07/2018 COVID-19 Vaccine (3 - season) 2024 07/26/2021, 06/28/2021 Influenza Adult (#1) 2024 05/08/2018, 05/08/2018, 03/14/2014, Additional history exists PHQ-2 (Physician [place]) 06/16/2024 12/22/2023 DTaP, Tdap and Td Vaccines (8 - Td or Tdap) 10/07/2028 10/07/2018, 08/01/2009, 02/05/2001, Additional history exists HPV Vaccines Completed 04/09/2007, 0509/2006, 08/05/2006 Meningococcal Vaccine Aged Out 04/09/2007 No marie fide eligible based on patient's age to complete this topic Hepatitis B Vaccines Completed 04/01/2013, 02/10/1996, 1995, Additional history exists Hepatitis C Completed 04/25/2022 Meningococcal B Vaccine Aged Out No l onger eligible based on patient's age to complete this topic RSV Immunizations Under 20 Months Aged Out No longer eligible based on patient's age to complete this topic Procedures Procedure Name Priority Date/Time Associated Diagnosis Comments HEPATITIS C ANTIBODY Routine 04/25/2022 11:16 AM EMAIL ENGINEER Tin's thyroiditis Need for hepatitis C screening test from Last 3 Months or Most Recently Relevant to Health Maintenance Results * HEPATITIS C ANTIBODY (04/25/2022 11:16 AM EMAIL ENGINEER) HEPATITIS C AB NON-REACTI VE NON-REACTI VE 04/25/2022 12:35 PM EMAIL ENGINEER [facility] 04/25/2022 11:1 6 AM EMAIL ENGINEER Christina Alexander DO LABORATORY Final Result [facility] [address] [place] [address], from Last 3 Months or Most Recently Relevant to Health Maintenance Insurance [facility] Care Teams Powerhouse Electrician Apprentice Relationship Specialty Start Date End Date Christina Alexander DO [address] [place] [address] PCP - General 09/13/15
--- OUTSIDE RECORDS SUMMARY | 2024-09-08 16:51 | XMS_ITS | Encounter Summary ---
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
== END 2024-09-08 16:08 | disposition home or self-care (01) ==
PROVIDERS: Emergency Provider Nurse Practitioner Family; PCP Family Medicine
DX: O99.711 Diseases of the skin and subcutaneous tissue complicating pregnancy, first trimester (principal); Z3A.00 Weeks of gestation of pregnancy not specified; L03.211 Cellulitis of face; O99.891 Other specified diseases and conditions complicating pregnancy; R59.1 Generalized enlarged lymph nodes; O99.281 Endocrine, nutritional and metabolic diseases complicating pregnancy, first trimester; E03.9 Hypothyroidism, unspecified
CPT/HCPCS: 99213; G0463